=== PATIENT | female | born 1985 ===

== ENCOUNTER 2020-11-03 04:26 | Outpatient (CLI) | payer MEDICAID | END 2020-11-03 04:27 | disposition EMS.NT | LOC: EMS 04:26 | DX: Z04.1 Encounter for examination and observation following transport accident (principal); F41.9 Anxiety disorder, unspecified ==

== ENCOUNTER 2021-06-19 19:35 | Outpatient (CLI) | payer MEDICAID | END 2021-06-19 19:36 | disposition EMS.NT | LOC: EMS 19:35 | DX: R09.89 Other specified symptoms and signs involving the circulatory and respiratory systems (principal); T18.0XXA Foreign body in mouth, initial encounter ==